=== PATIENT | male | born 1965 | race Caucasian/White ===

== ENCOUNTER → 2016-04-25 | Outpatient (CLI) | payer OTHER | LOC: EXRD 14:39 | DX: J20.9 Acute bronchitis, unspecified (principal); Z88.5 Allergy status to narcotic agent | CPT/HCPCS: 71020 ==

== ENCOUNTER → 2020-03-25 | Outpatient (CLI) | payer OTHER ==
[~2020-03-25] MED LIST: ACID CONTROLLER20 MG PO; ACTOS TAB 15MG15 MG PO; ACTOS15 MG PO; ADMELOG SO100 UNIT/1 SC; ADMELOG100 UNIT/1 SQ; AMLODIPINE BESY10 MG PO; ASPIR 8181 MG PO; ATORVASTATIN CA20 MG PO; AUGMENTIN 875-1 EACH PO; BASAGLAR K100 UNIT/1 SC; BASAGLAR K100 UNIT/1 SQ; BUDESONIDE0.5 MG/2 M NEB; CETIRIZINE HCL10 MG PO; DECADRON6 MG PO; ECOTRIN81 MG PO; EUTHYROX88 MCG PO; FAMOTIDINE20 MG PO; FLAGYL500 MG PO; FLEXERIL 10 MG10 MG PO; GABAPENTIN800 MG PO; HUMALOG MI100 UNIT/3 SC; HUMALOG100 UNIT/2 SC; HYDROCODON-ACE1 EAC2 PO; HYDROCODON-ACE1 EAC4 PO; IMDUR ER TAB 6060 MG PO; INVOKANA300 MG PO; IPRAT-ALBUT 0.5-3 ML INH; ISOSORBIDE DINI30 MG PO; ISOSORBIDE MON120 MG PO; JANUVIA100 MG PO; KEFLEX CAP 500500 MG PO; LANTUS100 UNIT/1 SQ; LEVAQUIN750 MG PO; LEVOTHYROXINE50 MCG PO; LEVOTHYROXINE88 MC1 PO; LIPITOR TAB 2020 MG PO; LOPRESSOR 25 MG25 MG PO; LOVAZA1 GM PO; METOPROLOL TART25 MG PO; NEURONTIN 400400 MG PO; NEURONTIN800 MG PO; NITROGLYCERIN0.4 MG SL; NITROSTAT 0.40.4 MG SL; NITROSTAT0.4 MG SL; NORCO 7.5-3251 EACH PO; NORVASC10 MG PO; OMEGA-31000 MG PO; PERCOCET 7.5-31 EACH PO; PIOGLITAZONE HC15 MG PO; PLAVIX 75 MG TA75 MG PO; PROVENTIL HFA 61 INH INH; RANEXA1000 MG PO; RANEXA500 MG PO; ROPINIROLE HCL0.5 MG PO; ST. JOSEPH ASPI81 MG PO; STEGLATRO15 MG PO; SYNTHROID50 MCG PO; TRADJENTA5 MG PO; TRAMADOL HCL50 MG PO; TRULICITY0.75 MG/0. SQ; ULTRAM50 MG PO; VENTOLIN HFA 66.7 GM INH; ZYRTEC10 MG PO; ZYVOX600 MG PO
[2020-03-25 09:58] LABS: HEMOGLOBIN 15.8 gm/dl (14.0-17.5); RED BLOOD COUNT 5.26 M/UL (4.20-5.50); WHITE BLOOD COUNT 6.4 K/UL (4.5-11.0)
[2020-03-25 10:02] LABS: BUN/CREATININE RATIO 12 (0-10)
== END ==
LOC: OPSV2 09:00
PROVIDERS: Orthopaedic Surgery
DX: Z01.818 Encounter for other preprocedural examination (principal); G56.01 Carpal tunnel syndrome, right upper limb; R94.31 Abnormal electrocardiogram [ECG] [EKG]; I44.4 Left anterior fascicular block
CPT/HCPCS: 36415; 80048; 85025; 93005

== ENCOUNTER → 2020-03-30 | Day surgery (SDC) | payer OTHER ==
[~2020-03-30] VITALS: Ht 172.7 cm; Wt 107.5 kg
== END | disposition home or self-care (01) ==
LOC: OR 05:41
DX: G56.01 Carpal tunnel syndrome, right upper limb (principal); G56.21 Lesion of ulnar nerve, right upper limb; J45.909 Unspecified asthma, uncomplicated; J18.9 Pneumonia, unspecified organism; K21.9 Gastro-esophageal reflux disease without esophagitis; M19.90 Unspecified osteoarthritis, unspecified site; E03.9 Hypothyroidism, unspecified; E11.9 Type 2 diabetes mellitus without complications; I25.2 Old myocardial infarction; I10 Essential (primary) hypertension; E78.5 Hyperlipidemia, unspecified; Z90.49 Acquired absence of other specified parts of digestive tract; Z79.899 Other long term (current) drug therapy; Z82.49 Family history of ischemic heart disease and other diseases of the circulatory system; Z83.3 Family history of diabetes mellitus; Z20.822 Contact with and (suspected) exposure to COVID-19
CPT/HCPCS: 82962; 93005; J0690; J1170; J2001; J2250; J2405; J2704; J2765; J3010; J7120

== ENCOUNTER → 2020-04-19 | Outpatient (CLI) | payer OTHER | LOC: KOH-I 04-15 13:00 | DX: E04.1 Nontoxic single thyroid nodule (principal) | CPT/HCPCS: 76536 ==

== ENCOUNTER → 2020-07-05 | Outpatient (CLI) | payer OTHER ==
[2020-07-05 09:34] LABS: HEMOGLOBIN 16.4 gm/dl (14.0-17.5); RED BLOOD COUNT 5.11 M/UL (4.20-5.50); WHITE BLOOD COUNT 6.6 K/UL (4.5-11.0)
[2020-07-05 09:53] LABS: BUN/CREATININE RATIO 14 (0-10)
== END ==
LOC: OPSV2 09:00
PROVIDERS: Orthopaedic Surgery
DX: Z01.812 Encounter for preprocedural laboratory examination (principal); M20.091 Other deformity of right finger(s)
CPT/HCPCS: 36415; 80048; 85025

== ENCOUNTER → 2020-07-13 | Day surgery (SDC) | payer OTHER | END | disposition home or self-care (01) | LOC: OR 06:57 | DX: M24.541 Contracture, right hand (principal); I11.9 Hypertensive heart disease without heart failure; E78.5 Hyperlipidemia, unspecified; E03.9 Hypothyroidism, unspecified; I25.10 Atherosclerotic heart disease of native coronary artery without angina pectoris; J44.9 Chronic obstructive pulmonary disease, unspecified; K21.9 Gastro-esophageal reflux disease without esophagitis; E11.9 Type 2 diabetes mellitus without complications; M19.90 Unspecified osteoarthritis, unspecified site; Z95.5 Presence of coronary angioplasty implant and graft; Z87.891 Personal history of nicotine dependence; Z79.82 Long term (current) use of aspirin; Z79.02 Long term (current) use of antithrombotics/antiplatelets; Z79.4 Long term (current) use of insulin; Z79.899 Other long term (current) drug therapy | CPT/HCPCS: 76000; 82962; J0690; J1100; J2001; J2250; J2405; J2704; J3010; J7120 ==

== ENCOUNTER 2020-07-25 11:55 | Emergency (ER) | payer OTHER ==
[~2020-07-25 11:55] MED LIST changes: -BUDESONIDE0.5 MG/2 M NEB; -DECADRON6 MG PO; -IPRAT-ALBUT 0.5-3 ML INH; -ST. JOSEPH ASPI81 MG PO
[2020-07-25 12:36] LABS: HEMOGLOBIN 16.5 gm/dl (14.0-17.5); RED BLOOD COUNT 5.11 M/UL (4.20-5.50); WHITE BLOOD COUNT 5.4 K/UL (4.5-11.0)
[2020-07-25 12:52] LABS: BUN/CREATININE RATIO 16 (0-10)
[2020-07-25] MEDS ORDERED: ST. JOSEPH ASPI81 MG PO (14:37)
[2020-07-25] MEDS ORDERED: DECADRON6 MG PO (14:38)
== END 2020-07-25 14:53 | disposition home or self-care (01) ==
LOC: ER1 11:55
PROVIDERS: Physician Assistant
DX: U07.1 COVID-19 (principal); E11.9 Type 2 diabetes mellitus without complications; I10 Essential (primary) hypertension
CPT/HCPCS: 0240U; 71045; 80048; 82550; 82553; 83605; 83874; 84484; 85025; 87040; 93005; 96374; 96375; 99284; J1100; J1885

== ENCOUNTER 2020-07-29 17:28 | Inpatient (IN) | payer OTHER ==
[~2020-07-29] VITALS: Ht 172.7 cm; Wt 103.9 kg
[~2020-07-29 17:28] MED LIST changes: +DECADRON6 MG PO; +ST. JOSEPH ASPI81 MG PO
[2020-07-29 18:37] LABS: HEMOGLOBIN 16.6 gm/dl (14.0-17.5); RED BLOOD COUNT 5.19 M/UL (4.20-5.50); WHITE BLOOD COUNT 6.7 K/UL (4.5-11.0)
[2020-07-29 19:00] LABS: BUN/CREATININE RATIO 18 (0-10)
[2020-07-30 04:06] LABS: HEMOGLOBIN 16.5 gm/dl (14.0-17.5); RED BLOOD COUNT 5.23 M/UL (4.20-5.50); WHITE BLOOD COUNT 6.7 K/UL (4.5-11.0)
[2020-07-30 04:29] LABS: BUN/CREATININE RATIO 30 (0-10)
[2020-07-31 04:17] LABS: HEMOGLOBIN 14.8 gm/dl (14.0-17.5); RED BLOOD COUNT 4.91 M/UL (4.20-5.50)
[2020-07-31 04:25] LABS: BUN/CREATININE RATIO 40 (0-10)
[2020-07-31 04:32] LABS: WHITE BLOOD COUNT 9.8 K/UL (4.5-11.0)
[2020-08-02 11:50] LABS: BUN/CREATININE RATIO 32 (0-10)
[2020-08-02] MEDS ORDERED: IPRAT-ALBUT 0.5-3 ML INH (12:43)
[2020-08-02 13:20] LABS: RED BLOOD COUNT 5.02 M/UL (4.20-5.50); WHITE BLOOD COUNT 10.4 K/UL (4.5-11.0)
== END 2020-08-02 19:00 | disposition home or self-care (01) | DRG 177 ==
LOC: ER1 17:28 → CDU 20:25 → MED SURG 4 20:25
PROVIDERS: Internal Medicine; Preventive Medicine Occupational Medicine; ADMIT Hospitalist
PROC: XW033E5 Introduction of Remdesivir Anti-infective into Peripheral Vein, Percutaneous Approach, New Technology Group 5 (ICD-10-PCS; principal; 2020-07-29)
PROC: XW13325 Transfusion of Convalescent Plasma (Nonautologous) into Peripheral Vein, Percutaneous Approach, New Technology Group 5 (ICD-10-PCS; 2020-07-29)
PROC: 8E0ZXY6 Isolation (ICD-10-PCS; 2020-07-29)
DX: U07.1 COVID-19 (principal); J12.82 Pneumonia due to coronavirus disease 2019; J96.01 Acute respiratory failure with hypoxia; I10 Essential (primary) hypertension; E78.5 Hyperlipidemia, unspecified; I25.10 Atherosclerotic heart disease of native coronary artery without angina pectoris; E11.9 Type 2 diabetes mellitus without complications; Z79.4 Long term (current) use of insulin; Z90.49 Acquired absence of other specified parts of digestive tract; Z83.3 Family history of diabetes mellitus; Z82.49 Family history of ischemic heart disease and other diseases of the circulatory system
CPT/HCPCS: 36415; 36600; 71045; 80048; 80053; 82550; 82553; 82803; 82962; 83605; 83874; 83880; 84484; 85025; 85027; 85379; 85652; 86140; 86900; 86901; 86927; 93005; 94664; 96374; 96375; 99285; J0456; J1100; J1650; J7030

== ENCOUNTER 2020-08-15 20:30 | Observation (INO) | payer OTHER ==
[~2020-08-15] VITALS: Ht 172.7 cm; Wt 104.3 kg
[~2020-08-15 20:30] MED LIST changes: +IPRAT-ALBUT 0.5-3 ML INH
[2020-08-15 21:04] LABS: HEMOGLOBIN 15.1 gm/dl (14.0-17.5); RED BLOOD COUNT 4.67 M/UL (4.20-5.50)
[2020-08-15 21:36] LABS: BUN/CREATININE RATIO 18 (0-10)
[2020-08-16 14:11] LABS: BORDETELLA PARAPERTUSSIS Not Detected (Not Detectd); BORDETELLA PERTUSSIS Not Detected (Not Detectd); CHLAMYDIA PNEUMONIAE Not Detected (Not Detectd); CORONAVIRUS HKU1 Not Detected (Not Detectd); CORONAVIRUS NL63 Not Detected (Not Detectd); CORONAVIRUS OC43 Not Detected (Not Detectd); CORONOAVIRUS 229E Not Detected (Not Detectd); HUMAN METAPNEUMOVIRUS Not Detected (Not Detectd); HUMAN RHINOVIRUS/ENTEROVIRUS Not Detected (Not Detectd); INFLUENZA A Not Detected (Not Detectd); INFLUENZA B Not Detected (Not Detectd); MYCOPLASMA PNEUMONIAE Not Detected (Not Detectd); PARAINFLUENZA VIRUS 1 Not Detected (Not Detectd); PARAINFLUENZA VIRUS 2 Not Detected (Not Detectd); PARAINFLUENZA VIRUS 3 Not Detected (Not Detectd); PARAINFLUENZA VIRUS 4 Not Detected (Not Detectd); RESPIRATORY SYNCYTIAL VIRUS Not Detected (Not Detectd)
[2020-08-16 15:10] LABS: SARS-CoV-2 NOT DETECTED (Not Detectd)
[2020-08-17 04:44] LABS: HEMOGLOBIN 13.3 gm/dl (14.0-17.5); WHITE BLOOD COUNT 7.5 K/UL (4.5-11.0)
[2020-08-17 04:54] LABS: RED BLOOD COUNT 4.18 M/UL (4.20-5.50)
[2020-08-17 05:07] LABS: BUN/CREATININE RATIO 21 (0-10)
[2020-08-17] MEDS ORDERED: ATORVASTATIN CA20 MG PO (12:10)
[2020-08-17] MEDS ORDERED: BUDESONIDE0.5 MG/2 M NEB (12:14)
[2020-08-19 13:14] LABS: ORGANISM ID Not indicated. (.); SPECIMEN SOURCE Urine (.); STREPTOCOCCUS PNEUMONIAE AG Negative (Negative)
== END 2020-08-17 15:50 | disposition left against medical advice (07) ==
LOC: ER1 20:30 → CDU 21:47 → M/S 21:47 → CDU 21:47 → M/S 08-16 09:06
PROVIDERS: Emergency Medicine; Internal Medicine; Internal Medicine Pulmonary Disease; ADMIT Internal Medicine
DX: U07.1 COVID-19 (principal); J84.10 Pulmonary fibrosis, unspecified; J96.11 Chronic respiratory failure with hypoxia; I25.118 Atherosclerotic heart disease of native coronary artery with other forms of angina pectoris; J45.909 Unspecified asthma, uncomplicated; I10 Essential (primary) hypertension; E78.5 Hyperlipidemia, unspecified; E11.9 Type 2 diabetes mellitus without complications; E03.9 Hypothyroidism, unspecified; E66.9 Obesity, unspecified; Z95.5 Presence of coronary angioplasty implant and graft; Z87.891 Personal history of nicotine dependence; Z68.34 Body mass index [BMI] 34.0-34.9, adult; Z79.82 Long term (current) use of aspirin; Z79.02 Long term (current) use of antithrombotics/antiplatelets; Z79.4 Long term (current) use of insulin; Z79.899 Other long term (current) drug therapy
CPT/HCPCS: 36415; 36600; 71045; 71250; 80053; 82550; 82553; 82728; 82803; 82962; 83615; 83690; 83735; 83874; 83880; 84100; 84484; 85025; 85379; 85384; 85610; 85730; 86140; 87081; 87278; 87633; 87899; 94640; 94664; 94760; 96372; 96374; 96375; 96376; 99285; G0378; J1650; J2270; J2405; U0002

== ENCOUNTER → 2020-09-08 | Outpatient (CLI) | payer OTHER ==
[~2020-09-08] MED LIST changes: +BUDESONIDE0.5 MG/2 M NEB
== END ==
LOC: HEART 5 09:54
DX: R06.02 Shortness of breath (principal); Z86.16 Personal history of COVID-19; I25.119 Atherosclerotic heart disease of native coronary artery with unspecified angina pectoris; I51.7 Cardiomegaly
CPT/HCPCS: 93306

== ENCOUNTER → 2020-09-22 | Outpatient (CLI) | payer OTHER | LOC: HEART 5 14:00 | DX: Z86.16 Personal history of COVID-19 (principal) | CPT/HCPCS: 71046; 94060; 94729 ==

== ENCOUNTER → 2021-10-03 | Outpatient (CLI) | payer OTHER | LOC: EXRD 11:39 | DX: M25.552 Pain in left hip (principal); M54.50 Low back pain, unspecified; G89.29 Other chronic pain; M47.816 Spondylosis without myelopathy or radiculopathy, lumbar region | CPT/HCPCS: 72110; 73502 ==

== ENCOUNTER → 2021-10-24 | Outpatient (CLI) | payer OTHER | LOC: KOH-I 11:59 | DX: M43.16 Spondylolisthesis, lumbar region (principal); M47.816 Spondylosis without myelopathy or radiculopathy, lumbar region; M16.9 Osteoarthritis of hip, unspecified | CPT/HCPCS: 72110; 73502 ==